=== PATIENT | male | born 1955 | race Caucasian/White ===

== ENCOUNTER 2019-01-01 06:10 | Day surgery (SDC) | payer BC ==
[~2019-01-01] VITALS: Ht 167.6 cm; Wt 74.8 kg
[2019-01-01] VITALS (26 sets, daily range): BP systolic 85–146; BP diastolic 54–71; PULSE 54–64; RESP 12–31; Ht 167.6 cm; Wt 74.8 kg
[~2019-01-01 06:10] MED LIST: ASPI-535 PO; ATAS PO; ATEN50TA PO; ATOR20TA38 PO; DOCU-144 PO; HYDR-3498 PO; HYDR-906 PO; IBUP-1542 PO; KETO125C TP; LEVO750T25 PO; LORA-186 PO; NAPR-985 PO; OMEP20CA9 PO; TRIA15CR55 TOP; [UNRECOGNIZED DRUG - CODE] PO
[2019-01-01] MEDS ORDERED: SOD CHLORIDE 0.9% 1,000 ML IV SCH ×2 (06:30→08:50)
[2019-01-01] MEDS ORDERED: RANO10002 PO (07:15)
[2019-01-01] MEDS ORDERED: METF-849 PO (07:15)
[2019-01-01] MEDS ORDERED: SITA100T11 PO (07:15)
[2019-01-01] MEDS ORDERED: NITROGLYCERIN (IC) 100 MCG/ML INJ ONE (07:28)
[2019-01-01] MEDS ORDERED: LIDOCAINE 1% (MDV) 20 ML INJ ONE (07:28)
[2019-01-01] MEDS ORDERED: MIDAZOLAM 1 MG/ML 2 ML INJ ONE (07:28)
[2019-01-01] MEDS ORDERED: VERAPAMIL 5 MG INJ ONE (07:28)
[2019-01-01] MEDS ORDERED: IODIXANOL LOCM 100 ML BTL ONE (07:28)
[2019-01-01] MEDS ORDERED: HEPARIN 1000 UNITS/ML 10 ML INJ ONE (07:28)
[2019-01-01] MEDS ORDERED: FENTAnyl 50 MCG/ML VIAL ONE (07:28)
--- NOTE | 2019-01-01 08:59 | OPR ---
Date/Time of Note Date/Time of Note DATE: 01/01/19 TIME: 08:53 Operative Report Procedure Date: Jan 01, 2019 Preoperative Diagnosis ANGINA Postoperative Diagnosis angina Operation/Procedure Performed ELIEZER MARTÍNEZ Surgeon see signature line Delivery Man renata Anesthesia Type: moderate sedation Estimated Blood Loss: minimal Transfusion none Specimen none Grafts/Implants none Complications none Procedure Description Bulk Station Operator: Jerome Calix MD Indication: 63-year-old gentleman with anginal chest pain, and abnormal stress test. Patient has a known bypass surgery with VENEGAS to LAD. Patient also needs cardioscope preop evaluation for shoulder surgery. Procure performed: #1 left heart catheterization and selective right and left coronary angiogram using left radial approach. #2 ultrasound guided placement of radial arterial sheath placement 3. Selective VENEGAS angiography 4. Moderate sedation for more than 45 minutes Findings: 1. Left main: is normal and birfurcates to LAD & LCX. 2. LAD: [id number]% stenosis at proximal LAD, prior to the previous long stents. VENEGAS to LAD is patent to the distal LAD 3. Left circumflex artery: is nondominant. it has 50% % stenosis ostially. It has multiple obtuse marginal. Distal obtuse marginal have 60% stenosis ostially and are small vessels. 4. RCA: is dominant. it has 50-60 % stenosis at proximal right coronary artery. 5. LVEDP is 17. No significant gradient noted across aortic valve Procedure in detail: Written informed consent with obtained after risks benefits and alternatives discussed with the patient in detail. risks including but not limited to risk of infection vascular complications, bleeding complications, [place] stroke arrhythmia renal failure at even were discussed with the patient in detail. Patient was brought into the cardiac veterinary laboratory diagnostician and placed in supine posi tion. Radial area was prepped and draped in regular sterile fashion and then he was in anesthetized using 1% lidocaine. Under internet marketing assistant of ultrasound, radial artery was cannulated and using modified seldinger technique a 6 [place] sheath was placed in the radial artery. JR4 catheter was advanced and engaged into the left internal mammary artery angiography was obtained. The knee was advanced to engage into the left ventricle hemodynamic recorded by flulike aortic pressure was measured. Then he was advanced and engaged into the right coronary artery and angiographic view was obtained. Then a JL3.5 catheter was advanced and engaged into the left main coronary artery and angiographic view was obtained. Patient tolerated the procedure well with no complication.. 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 Does not appear to be significantly changed from previous angiography done a few years ago. Recommendations: Aggressive medical therapy. aspirin indefinitely We will consider high risk PCI of the CT of the left anterior descending artery if patient continues to have anginal pain despite optimal medical therapy JEROME CALIX MD [facility] JEROME CALIX MD Jan 01, 2019 08:59
[2019-01-01] MEDS ORDERED: ACETAMINOPHEN 325 MG TAB PO PRN (09:00)
[2019-01-01] MEDS ORDERED: morphine 2 MG INJ IV PRN (09:00)
== END 2019-01-01 15:00 | disposition home or self-care (01) ==
LOC: CCL 06:10 → SDS 06:10 → CCL 15:00
PROVIDERS: ATTEND Internal Medicine Interventional Cardiology
DX: I25.119 Atherosclerotic heart disease of native coronary artery with unspecified angina pectoris (principal); I10 Essential (primary) hypertension
CPT/HCPCS: 80053; 80061; 82962; 85025; 85610; 85730; 93459; C1769; C1887; C1894; J1644; J2250; J3010; Q9967